=== PATIENT | female | born 1980 | race Caucasian/White ===

== ENCOUNTER 2021-01-31 14:21 | Emergency (ER) | payer BC | END 2021-01-31 16:22 | disposition home or self-care (01) | LOC: CSHERS 14:21 | DX: M79.662 Pain in left lower leg (principal); J44.9 Chronic obstructive pulmonary disease, unspecified; K21.9 Gastro-esophageal reflux disease without esophagitis; Z87.891 Personal history of nicotine dependence; Z79.899 Other long term (current) drug therapy ==

== ENCOUNTER 2024-07-27 15:32 | Emergency (ER) | payer OTHER, SELFPAY ==
[2024-07-27] MEDS ORDERED: Ibuprofen 200 MG TAB ONE (16:28)
[2024-07-27] MEDS ORDERED: Ondansetron ODT 4 MG TAB ONE (16:28)
[2024-07-27 17:54] LABS: Influenza A by NAA Not Detected (NotDetected); Influenza B by NAA Not Detected (NotDetected); SARS-CoV-2 NAA Rapid Test Not Detected (NotDetected)
== END 2024-07-27 18:52 | disposition home or self-care (01) ==
LOC: CSHERS 15:32
DX: R05.9 Cough, unspecified (principal); R11.0 Nausea; R09.81 Nasal congestion; Z87.891 Personal history of nicotine dependence
CPT/HCPCS: 71046; Q0162